=== PATIENT | female | born 1980 | race American Indian/Alaskan Native ===

== ENCOUNTER 2019-09-09 12:26 | Outpatient (CLI) | payer MEDICAID ==
--- NOTE | 2019-09-09 13:16 | XRay Report ---
LEFT KNEE 2 VIEWS INDICATION: PAIN IN LEFT KNEE. COMPARISON: None. IMPRESSION: No acute osseous or soft tissue abnormality. No significant DJD. Signer Name: Juni Michelle Jr, MD Signed: 09/09/2019 1:12 PM Workstation Name: [id number]
== END 2019-09-09 12:27 | disposition home or self-care (01) ==
LOC: XRAY 12:26
PROVIDERS: ATTEND Orthopaedic Surgery
DX: M25.562 Pain in left knee (principal)